=== PATIENT | male | born 1990 | race Caucasian/White ===

== ENCOUNTER 2020-03-13 12:09 | Emergency (ER) | payer BC ==
--- OUTSIDE RECORDS SUMMARY | 2020-03-13 14:16 | XMS REPORT | Clinical Summary ---
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
--- OUTSIDE RECORDS SUMMARY | 2020-03-13 14:16 | XMS REPORT | Continuity of Care Document ---
:1990 Author Organization [facility] t Address [address] [place] [address] Care Team Providers Name Role Phone Asked, Pcp Primary Care Physician Unavailable Problems Condition Condition Condition Status Onset Resolution Last Treating Co mments Source Name Details Category Date Date Treatment Clinician Date Anal pain Anal pain Disease Active 2015-09 [place] 09-18 [facility] 00:00: st 00 Anorectal Anorectal Disease Active 2015-09 [place] fistula fistula 09-18 Methodi 00:00: st 00 Perianal Perianal Disease Active 2015-09 [place] abscess abscess 09-18 Methodi 00:00: st 00 Allergic Allergic Problem [facility], [facility] Luke s - unspecifie unspecifie Me moria d d l seasonalit seasonalit Ou tpati y, y, ent unspecifie unspecifie Cl inics d trigger d trigger Adult BMI Adult BMI Problem Active [facility] 33.0-33.9 33.0-33.9 Luke s - kg/sq m kg/sq m [facility] Mixed Mixed Problem Active [facility] hyperlipid hyperlipid Sasha kes - emia emia [facility] Allergies, Adverse Reactions, Alerts Allergy Allergy Status Severity Reaction(s) Onset Inactive Treating Comm ents Source Name Type Date Date Clinician Penicill Propensi Active 2017-09 For a [place] ins ty to 1-30 tooth Methodi adverse 00:00: procedure st reaction 00 , had s to severe drug blood shot eyes maureen fever Shellfis Propensi Active Anaphylaxis, 2017-09 [place] h ty to Shortness Of 1-30 contracti M ethodi Derived adverse Breath 00:00: ons/spasm st reaction 00 s, s to tingling drug Family History Family Member Diagnosis Comments Start Date Stop Date Source Natural mother Pancreatic cancer [place] be[place] Jainism Social History Social Habit Start Date Stop Date Quantity Comments Source Sex Assigned At [facility] ethodist Alcohol intake 2018-08-04 2018-08-04 Current Devan Al thodist 00:00:00 00:00:00 non-drinker of alcohol (finding) Smoking Status Start Date Stop Date Source Never smoker [facility] Medications This patient has no known medications. Procedures This patient has no known procedures. Plan of Care Planned Activity Planned Date Details Comments Source Future Scheduled 2020-04-05 INFLUENZA VACCINE [place] Jain[facility] Test 00:00:00 [code = INFLUENZA VACCINE] Encounters Start End Encounter Admission Attending Care Care Encounter Source Date/Time Date/Time Type Type Clinicians Facility Department ID 2020-02-19 2020-02-19 [facility] [id number] [facility] [address] 15:41:00 15:41:00 t [employer] [place] [facility] [employer] [facility] Family Medicine Medicine Outpati ent Clinics Results This patient has no known results.
--- OUTSIDE RECORDS SUMMARY | 2020-03-13 14:17 | XMS REPORT ---
:1990 Author Organization [employer] Care Team Providers Name Role Phone Feliciano Lima Provider Role Unavailable Allergies No Known Allergies Problems Problem Type Condition Code Onset Dates Condition Statu s Problem Allergic rhinitis, unspecified J30.9 Active seasonality, unspecified trigger Problem Adult BMI 33.0-33.9 kg/sq m Z68.33 Active Problem Mixed hyperlipidemia E78.2 Active Medications No Known Medications Results No Known Results Summary Purpose eClinicalWorks Submission
--- NOTE | 2020-03-13 14:39 | ER ---
Nurse's Notes [facility] Name: Vaughn Oleary Age: 29 yrs Sex: Male : 1990 Arrival Date: 03/13/2020 Time: 12:15 Bed 16 Private MD: Diagnosis: Palpitations Presentation: 03/13 12:15 Chief complaint: EMS states: At 1000 today, pt reports dizziness and SOB. Pt reports ca1 dizziness for about a week now. SOB for couple of months. Pt states, "I just feel like I need to get couple of extra breaths when my heart speeds up like myheart is racing. It just happens randomly and out of the blue even if I am just sitting". Pt also reports nausea. BP 174/118, HR 91. BGL 112. Coronavirus screen: Proceed with normal triage. Patient denies a cough. Patient denies shortness of breath or difficulty breathing. Patient denies measured and/or subjective temperature greater than 100.4F prior to today's visit. Patient denies travel on a cruise ship or to a country the [facility] currently lists as an affected area. Patient denies contact with known and/or suspected case of COVID-19. Ebola Screen: Patient negative for fever greater than or equal to 101.5 degrees Fahrenheit, and additional compatible Ebola Virus Disease symptoms Patient denies exposure to infectious person. Patient denies travel to an Ebola-affected area in the 21 days before illness onset. No symptoms or risks identified at this time. Initial Sepsis Screen: Does the patient meet any 2 criteria? No. Patient's initial sepsis screen is negative. Does the patient have a suspected source of infection? No. Patient's initial sepsis screen is negative. Risk Assessment: Do you want to hurt yourself or someone else? Patient reports no desire to harm self or others. Onset of symptoms was March 13, 2020. 12:15 Method Of Arrival: EMS: [facility] ca1 12:15 Acuity: BEN 3 ca1 Historical: - Allergies: 12:19 PENICILLINS; ca1 12:19 SHELLFISH; ca1 - Home Meds: 12:19 None [Active]; ca1 - PMHx: 12:19 hemorrhoids; ca1 - PSHx: 12:19 None; ca1 - Immunization history:: Adult Immunizations up to date. - Social history:: Smoking status: Patient reports the use of cigarette tobacco products, cigars. Screenin:34 Abuse screen: Denies threats or abuse. Nutritional screening: No deficits noted. em Tuberculosis screening: No symptoms or risk factors identified. Fall Risk None identified. Assessment: 13:00 General: Appears in no apparent distress. comfortable, Behavior is calm, cooperative, em appropriate for age, Denies. Pain: Denies pain. Neuro: Level of Consciousness is awake, alert, obeys commands, Oriented to person, place, time, situation, Appropriate for age Reports dizziness. Cardiovascular: Reports palpitations, shortness of breath, Capillary refill < 3 seconds Patient's skin is warm and dry. Rhythm is sinus rhythm with 1st degree heart block. Respiratory: Airway is patent Respiratory effort is even, unlabored, Respiratory pattern is regular, symmetrical, Denies cough. GI: Patient currently denies nausea, vomiting. Derm: Skin is intact, is healthy with good turgor, Skin is pink, warm \\T\\ dry. Musculoskeletal: Capillary refill < 3 seconds, Range of motion: intact in all extremities. 13:15 Reassessment: pt states he will refuse labs today, only wants EKG and chest x-ray, will em make a follow up appointment tomorrow with PCP, provider notified. 14:30 Reassessment: Patient appears in no apparent distress at this time. Patient and/or em family updated on plan of care and expected duration. Pain level reassessed. Patient is alert, oriented x 3, equal unlabored respirations, skin warm/dry/pink. Vital Signs: 12:15 BP 146 / 81; Pulse 87; Resp 18 S; Temp 98.7(TE); Pulse Ox 99% on R/A; Weight 104.33 kg ca1 (R); Height 6 ft. 0 in. (182.88 cm) (R); 13:30 BP 121 / 67; Pulse 67; Resp 18; Pulse Ox 98% on R/A; Pain 0/10; em 14:30 BP 120 / 77; Pulse 64; Resp 18; Pulse Ox 97% on R/A; Pain 0/10; em 12:15 Body Mass Index 31.19 (104.33 kg, 182.88 cm) ca1 ED Course: 12:15 Patient arrived in ED. ca1 12:16 Aureliano Trejo, RN is Primary Nurse. em 12:19 Triage completed. ca1 12:19 Arm band placed on right wrist. ca1 12:30 Lilo Coffman [facility]-C [facility]. kb 12:30 Mitchell Benavides MD is Attending Physician. kb 13:00 Maintain EMS IV. Dressing intact. Good blood return noted. Site clean \\T\\ dry. Gauge \\T\\ em site: 20 L FA. 13:10 Patient has correct armband on for positive identification. Placed in gown. Bed in low em position. Call light in reach. Side rails up X2. cardiac monitor technician on. Pulse ox on. NIBP on. 14:53 No provider procedures requiring assistance completed. IV discontinued, intact, em bleeding controlled, No redness/swelling at site. Pressure dressing applied. Administered Medications: No medications were administered Outcome: 14:38 Discharge ordered by . kb 14:50 Discharged to home ambulatory. em 14:50 Condition: good 14:50 Discharge instructions given to patient, Instructed on discharge instructions, follow up and referral plans. Demonstrated understanding of instructions, follow-up care. 14:55 Patient left the ED. em Signatures: Lilo Coffman FNP-C FNP-Aureliano Benjamin, RN RN em Hawa Alexander RN RN ca1
--- NOTE | 2020-03-13 14:39 | EDPHYS ---
Physician Documentation [facility] Name: Vaughn Oleary Age: 29 yrs Sex: Male : 1990 Arrival Date: 03/13/2020 Time: 12:15 Bed 16 Private MD: ED Physician Mitchell Benavides HPI: 03/13 14:04 This 29 yrs old Male presents to ER via EMS with complaints of Dizziness. kb 14:04 The patient presents with a history of heart racing. Context: The symptoms occur kb without known cause. Onset: The symptoms/episode began/occurred just prior to arrival. Duration: The patient or guardian reports a single episode, that is now resolved. Modifying factors: The symptoms are aggravated by nothing. The symptoms are alleviated by nothing. Associated signs and symptoms: Pertinent positives: anxiety. Severity of symptoms: At their worst the symptoms were moderate in the emergency department the symptoms have resolved. The patient has experienced similar episodes in the past, several times. The patient has not recently seen a physician. Pt states he was at work and his heart started racing. States he has had this multiple times before, but it normally only lasts for a minute or two. States this time it was lasting longer so he got worked up about it and thinks that made it worse. States it has now resolved. . Historical: - Allergies: 12:19 PENICILLINS; ca1 12:19 SHELLFISH; ca1 - Home Meds: 12:19 None [Active]; ca1 - PMHx: 12:19 hemorrhoids; ca1 - PSHx: 12:19 None; ca1 - Immunization history:: Adult Immunizations up to date. - Social history:: Smoking status: Patient reports the use of cigarette tobacco products, cigars. ROS: 14:04 Constitutional: Negative for fever, chills, and weight loss, ENT: Negative for injury, kb pain, and discharge, Neck: Negative for injury, pain, and swelling, Abdomen/GI: Negative for abdominal pain, nausea, vomiting, diarrhea, and constipation, Back: Negative for injury and pain, MS/Extremity: Negative for injury and deformity, Skin: Negative for injury, rash, and discoloration. 14:04 Cardiovascular: Positive for palpitations, Negative for chest pain, edema, orthopnea, paroxysmal nocturnal dyspnea. 14:04 Respiratory: Positive for shortness of breath, Negative for cough, dyspnea on exertion, hemoptysis, orthopnea, pleurisy, sputum production, wheezing. 14:04 Neuro: Positive for dizziness. Exam: 14:04 Constitutional: This is a well developed, well nourished patient who is awake, alert, kb and in no acute distress. Head/Face: Normocephalic, atraumatic. Neck: Trachea midline, no thyromegaly or masses palpated, and no cervical lymphadenopathy. Supple, full range of motion without nuchal rigidity, or vertebral point tenderness. No Meningismus. Chest/axilla: Normal chest wall appearance and motion. Nontender with no deformity. No lesions are appreciated. Cardiovascular: Regular rate and rhythm with a normal S1 and S2. No gallops, murmurs, or rubs. Normal PMI, no JVD. No pulse deficits. Respiratory: Lungs have equal breath sounds bilaterally, clear to auscultation and percussion. No rales, rhonchi or wheezes noted. No increased work of breathing, no retractions or nasal flaring. Abdomen/GI: Soft, non-tender, with normal bowel sounds. No distension or tympany. No guarding or rebound. No evidence of tenderness throughout. Skin: Warm, dry with normal turgor. Normal color with no rashes, no lesions, and no evidence of cellulitis. MS/ Extremity: Pulses equal, no cyanosis. Neurovascular intact. Full, normal range of motion. Neuro: Awake and alert, GCS 15, oriented to person, place, time, and situation. Cranial nerves II-XII grossly intact. Motor strength 5/5 in all extremities. Sensory grossly intact. Cerebellar exam normal. Normal gait. 18:50 ECG was reviewed by the Attending Physician. kdr Vital Signs: 12:15 BP 146 / 81; Pulse 87; Resp 18 S; Temp 98.7(TE); Pulse Ox 99% on R/A; Weight 104.33 kg ca1 (R); Height 6 ft. 0 in. (182.88 cm) (R); 13:30 BP 121 / 67; Pulse 67; Resp 18; Pulse Ox 98% on R/A; Pain 0/10; em 14:30 BP 120 / 77; Pulse 64; Resp 18; Pulse Ox 97% on R/A; Pain 0/10; em 12:15 Body Mass Index 31.19 (104.33 kg, 182.88 cm) ca1 MDM: 12:30 Patient medically screened. kb 13:59 Data reviewed: vital signs, nurses notes. Data interpreted: Pulse oximetry: on room air kb is 98 %. Interpretation: normal. Counseling: I had a detailed discussion with the patient and/or guardian regarding: the historical points, exam findings, and any diagnostic results supporting the discharge/admit diagnosis, radiology results, the need for outpatient follow up, a family practitioner, to return to the emergency department if symptoms worsen or persist or if there are any questions or concerns that arise at home. 14:37 ED course: Pt refuses blood work, reporting he just had blood work a couple of weeks kb ago and everything was fine. Pt educated to follow up with inhalation therapist for possible holter monitor. . 03/13 12:30 Order name: XRAY Chest (1 view) kb 03/13 12:30 Order name: EKG; Complete Time: 21:16 kb 03/13 12:30 Order name: Cardiac monitoring; Complete Time: 12:48 kb 03/13 12:30 Order name: EKG - Nurse/Tech; Complete Time: 13:18 kb 03/13 12:30 Order name: IV Saline Lock; Complete Time: 12:48 kb 03/13 12:30 Order name: Labs collected and sent; Complete Time: 12:48 kb 03/13 14:47 Order name: RAD; Complete Time: 14:50 EDMS 03/13 12:30 Order name: O2 Per Protocol; Complete Time: 12:48 kb 03/13 12:30 Order name: O2 Sat Monitoring; Complete Time: 12:48 kb EC:50 Rate is 69 beats/min. Rhythm is regular, Sinus arrythmia with No ectopy. QRS [place] is kdr Normal. UT interval is normal. QRS interval is normal. QT interval is normal. Clinical impression: NSR w/ Non-specific ST/T Changes. Administered Medications: No medications were administered Disposition: 03/13/20 14:38 Discharged to Home. Impression: Palpitations. - Condition is Stable. - Discharge Instructions: Panic Attacks, [id number], Palpitations, [id number]. - Medication Reconciliation Form, Thank You Letter, Antibiotic Education, Prescription Opioid Use form. - Follow up: Emergency Department; When: As needed; Reason: Worsening of condition. Follow up: Private Physician; When: 2 - 3 days; Reason: Recheck today's complaints, Continuance of care, Re-evaluation by your physician. Addendum: 03/17/2020 16:30 Co-signature as Attending Physician, Mitchell Benavides MD I agree with the assessment and k dr plan of care. Signatures: Dispatcher [employer] EDLiol Tony, ADVENTURE CHALLENGE INSTRUCTOR-C ADVENTURE CHALLENGE INSTRUCTOR-Ckb Mitchell Benavides MD MD [facility] Aureliano Trejo, ZANE RN em Acob, ZANE Shaikh RN ca1 Corrections: (The following items were deleted from the chart) 03/13 14:38 13:59 Counseling: I had a detailed discussion with the patient and/or guardian nicolle regarding: the historical points, exam findings, and any diagnostic results supporting the discharge/admit diagnosis, the need for outpatient follow up, a family practitioner, to return to the emergency department if symptoms worsen or persist or if there are any questions or concerns that arise at home, kb 14:55 14:38 03/13/2020 14:38 Discharged to Home. Impression: Palpitations. Condition is em Stable. Forms are Medication Reconciliation Form, Thank You Letter, Antibiotic Education, Prescription Opioid Use. Follow up: Emergency Department; When: As needed; Reason: Worsening of condition. Follow up: Private Physician; When: 2 - 3 days; Reason: Recheck today's complaints, Continuance of care, Re-evaluation by your physician. kb
--- NOTE | 2020-03-13 14:42 | RAD REPORT ---
EXAM DESCRIPTION: RAD - Chest Single View - 03/13/2020 2:07 pm CLINICAL HISTORY: dizziness Chest pain. COMPARISON: No comparisons FINDINGS: Portable technique limits examination quality. The lungs are grossly clear. The heart is normal in size. No displaced fractures. IMPRESSION: No acute intrathoracic process suspected.
[2020-03-13 15:29] VITALS: BP 120/77; TEMP 98.7; O2SAT 97
== END 2020-03-13 14:55 | disposition home or self-care (01) ==
LOC: ER 12:09
DX: R00.2 Palpitations (principal); Z88.0 Allergy status to penicillin; Z91.013 Allergy to seafood; F17.210 Nicotine dependence, cigarettes, uncomplicated
CPT/HCPCS: 71045; 99284